=== PATIENT | female | born 2005 | race Caucasian/White ===

== ENCOUNTER 2025-10-07 13:13 | Emergency (ER) | payer BC ==
[2025-10-07 13:57] LABS: #Basophils Less than 0.03 10x3/uL (0.0-0.2); #Eosinophils 0.06 10x3/uL (0.0-0.5); #Monocytes 0.59 10x3/uL (0.0-1.1); #Neutrophils 6.11 10x3/uL (1.5-8.4); %Basophils 0.2 % (0.0-2.0); %Eosinophils 0.7 % (0.0-6.0); %Lymphocytes 25.5 % (18.0-47.0); %Monocytes 6.5 % (0.0-10.0); %Neutrophils 66.9 % (40.0-75.0); Hematocrit 42.5 % (34.9-44.5); Hemoglobin 14.1 g/dL (12.0-15.5); Mean Corpuscular Hemoglobin 28.8 pg (27.0-33.0); Mean Corpuscular Volume 86.7 fL (81.6-98.3); Platelet Count 258 10x3/uL (150-450); Red Blood Cell (RBC) Count 4.90 10x6/uL (3.90-5.03); White Blood Cell (WBC) Count 9.13 10x3/uL (3.5-10.5)
[2025-10-07 13:59] LABS: BHCG - Serum Negative (NEGATIVE); Pregs Control Background? CLEAR/WHITE (CLR/WHITE); Pregs Control Bar Appear? YES (CONTROL BAR)
[2025-10-07 14:09] LABS: ALT (SGPT) 28 U/L (Less than 34); AST (SGOT) 23 U/L (11-34); Albumin 4.0 g/dL (3.1-4.5); Alkaline Phosphatase 78 U/L (40-100); Anion Gap 14 mmol/L (10-20); BUN (Urea Nitrogen) 10 mg/dL (7.0-18.7); Bilirubin, Total 0.5 mg/dL (0.3-1.2); Calc. Creatinine Clearance 0 mL/min (70-130); Calcium 9.4 mg/dL (7.8-10.44); Carbon Dioxide 25 mmol/L (22-29); Chloride 107 mmol/L (98-107); Globulin 3.4 g/dL (2.4-3.5); Glucose 98 mg/dL (70-105); Potassium 4.7 mmol/L (3.5-5.1); Sodium 141 mmol/L (136-145)
[2025-10-07] MEDS ORDERED: Dexamethasone 10 MG/ML VIAL ONE (16:00)
[2025-10-07] MEDS ORDERED: Metoclopramide HCl 10 MG (2 mL) VIAL ONE (16:00)
[2025-10-07] MEDS ORDERED: Ketorolac Tromethamine 30 MG (1 mL) VIAL ONE (16:00)
[2025-10-07] MEDS ORDERED: Acetaminophen 500 MG TAB ONE (16:01)
== END 2025-10-07 17:17 | disposition home or self-care (01) ==
LOC: CSHERS 13:13
DX: R51.9 Headache, unspecified (principal); F90.9 Attention-deficit hyperactivity disorder, unspecified type
CPT/HCPCS: 36415; 70450; 80053; 84703; 85025; 96374; 96375; J1100; J1885; J2765

== ENCOUNTER 2025-11-17 19:40 | Emergency (ER) | payer BC ==
[2025-11-17] MEDS ORDERED: Ketorolac Tromethamine 30 MG (1 mL) VIAL ONE (20:46)
[2025-11-17] MEDS ORDERED: Acetaminophen 500 MG TAB ONE (20:46)
[2025-11-17 20:51] LABS: #Basophils Less than 0.03 10x3/uL (0.0-0.2); #Eosinophils Less than 0.03 10x3/uL (0.0-0.5); #Monocytes 0.76 10x3/uL (0.0-1.1); #Neutrophils 6.19 10x3/uL (1.5-8.4); %Basophils 0.3 % (0.0-2.0); %Eosinophils 0.3 % (0.0-6.0); %Lymphocytes 6.4 % (18.0-47.0); %Monocytes 10.1 % (0.0-10.0); %Neutrophils 82.6 % (40.0-75.0); Hematocrit 45.0 % (34.9-44.5); Hemoglobin 15.5 g/dL (12.0-15.5); Mean Corpuscular Hemoglobin 29.2 pg (27.0-33.0); Mean Corpuscular Volume 84.9 fL (81.6-98.3); Platelet Count 254 10x3/uL (150-450); Red Blood Cell (RBC) Count 5.30 10x6/uL (3.90-5.03); White Blood Cell (WBC) Count 7.49 10x3/uL (3.5-10.5)
[2025-11-17 21:04] LABS: ALT (SGPT) 33 U/L (Less than 34); AST (SGOT) 26 U/L (11-34); Albumin 4.6 g/dL (3.1-4.5); Alkaline Phosphatase 87 U/L (40-100); Anion Gap 16 mmol/L (10-20); BUN (Urea Nitrogen) 10 mg/dL (7.0-18.7); Bilirubin, Total 0.7 mg/dL (0.3-1.2); Calc. Creatinine Clearance 0 mL/min (70-130); Calcium 10.2 mg/dL (7.8-10.44); Carbon Dioxide 21 mmol/L (22-29); Chloride 102 mmol/L (98-107); Globulin 3.7 g/dL (2.4-3.5); Glucose 102 mg/dL (70-105); Magnesium 1.8 mg/dL (1.7-2.2); Potassium 4.1 mmol/L (3.5-5.1); Sodium 135 mmol/L (136-145)
[2025-11-17 21:21] LABS: BHCG - Serum Negative (NEGATIVE)
[2025-11-17 21:22] LABS: Pregs Control Background? CLEAR/WHITE (CLR/WHITE); Pregs Control Bar Appear? YES (CONTROL BAR)
== END 2025-11-17 22:54 | disposition home or self-care (01) ==
LOC: CSHERS 19:40
DX: J11.1 Influenza due to unidentified influenza virus with other respiratory manifestations (principal); E66.9 Obesity, unspecified
CPT/HCPCS: 36415; 80053; 83735; 84703; 85025; 87081; 87428; 87430; 93005; 96374; J1885